=== PATIENT | male | born 1955 | race Caucasian/White ===

== ENCOUNTER 2020-02-18 10:54 | Outpatient (REF) | payer OTHER, SELFPAY | END 2020-02-18 10:55 | disposition home or self-care (01) | LOC: HO.LNP 10:54 | PROVIDERS: Visit Provider Internal Medicine | DX: Z20.828 Contact with and (suspected) exposure to other viral communicable diseases (principal) | CPT/HCPCS: 87635 ==

== ENCOUNTER 2020-04-19 10:15 | Outpatient (REF) | payer OTHER, SELFPAY ==
[2020-04-19 14:02] LABS: Estimated Average Glucose 123 mg/dL; Hemoglobin A1C 150.9302 umol/L; Hemoglobin A1c % 5.9 %
[2020-04-19 14:29] LABS: Anion Gap 12 (12-20); Blood Urea Nitrogen 12 mg/dL (9-16); Calcium 8.6 mg/dL (8.4-10.2); Carbon Dioxide 28 mmol/L (22-29); Chloride 103 mmol/L (96-108); Estimated Glomerular Filt Rate > 60; Glucose Random 115 mg/dL (60-115); Potassium 4.3 mmol/l (3.3-5.1); Sodium 139 mmol/L (135-145)
== END 2020-04-19 10:16 | disposition home or self-care (01) ==
LOC: HO.10HDL 10:15
PROVIDERS: PCP Internal Medicine; Visit Provider Internal Medicine
DX: E78.00 Pure hypercholesterolemia, unspecified (principal); R73.03 Prediabetes
CPT/HCPCS: 80048; 83036

== ENCOUNTER 2020-10-18 09:54 | Outpatient (REF) | payer OTHER, SELFPAY ==
[2020-10-18 13:54] LABS: MANUAL DIFF FLAG NO
[2020-10-18 13:59] LABS: Glucose Urine UA NEG (NEG); Leukocyte Esterase Urine NEG (NEG); Nitrite Urine NEG (NEG); Specific Gravity - Urine >= 1.030 (1.005-1.025); Urine Blood NEG (NEG); Urine Ketones 40 MG/DL (NEG); Urine Protein NEG (NEG-TRACE)
[2020-10-18 14:11] LABS: Basophils Percent Auto 0.8 % (0-2); Eosinophils Absolute Auto 0.1 X10*3/uL (0.0-0.4); Eosinophils Percent Auto 1.7 % (0-4); Hematocrit 42.7 % (42-52); Hemoglobin 14.4 g/dl (14.0-18.0); Imm Gran Abs Auto 0.01 X10*3/uL (0.00-0.03); Imm Gran Pct Auto 0.3 % (0.0-0.4); Lymphocytes Absolute Auto 1.2 X10*3/uL (1.2-4.9); Lymphocytes Percent Auto 32.2 % (20-40); Mean Corpuscular HGB Conc 33.7 g/dl (31.0-36.0); Mean Corpuscular Hemoglobin 31.7 pg (27.0-33.0); Mean Corpuscular Volume 94.1 fL (80-98); Mean Platelet Volume 8.7 fL (9.4-12.4); Monocytes Absolute Auto 0.4 X10*3/uL (0.1-1.2); Monocytes Percent Auto 10.7 % (2-11); Neutrophils Percent Auto 54.3 % (45-73); Platelet Count 168 X10*3/uL (160-400); Red Blood Count 4.54 X10*6/uL (4.60-5.80); Red Cell Distribution Width 12.2 % (11.0-16.0); White Blood Count 3.6 X10*3/uL (4.8-10.8)
[2020-10-18 14:17] LABS: Appearance Urine CLEAR; Color Urine YELLOW
[2020-10-18 14:23] LABS: Estimated Average Glucose 120 mg/dL; Hemoglobin A1C 150.2964 umol/L; Hemoglobin A1c % 5.8 %
[2020-10-18 14:31] LABS: Alanine Aminotransferase 13 U/L (0-40); Albumin Level 4.3 g/dL (3.5-5.0); Alkaline Phosphatase 39 U/L (39-117); Anion Gap 13 (12-20); Aspartate Amino Transferase 19 U/L (5-37); Bilirubin Total 1.5 mg/dL (0.0-1.0); Blood Urea Nitrogen 13 mg/dL (9-16); Calcium 8.9 mg/dL (8.4-10.2); Carbon Dioxide 28 mmol/L (22-29); Chloride 103 mmol/L (96-108); Cholesterol 189 mg/dL; Estimated Glomerular Filt Rate > 60; Glucose Random 116 mg/dL (60-115); HDL Cholesterol 44 mg/dL; LDL Cholesterol Calculated 118 mg/dl; Potassium 4.2 mmol/L (3.3-5.1); Sodium 140 mmol/L (135-145); Total Protein 6.9 g/dL (6.5-8.0); Triglycerides 138 mg/dL
[2020-10-18 15:03] LABS: Creatinine Urine 300.99 mg/dL; Microalbum/Creatinine Ratio Ur 4.3 ug/mg cr
== END 2020-10-18 09:55 | disposition home or self-care (01) ==
LOC: HO.10HDL 09:54
PROVIDERS: Visit Provider Internal Medicine
DX: Z00.00 Encounter for general adult medical examination without abnormal findings (principal); Z12.5 Encounter for screening for malignant neoplasm of prostate; E78.00 Pure hypercholesterolemia, unspecified; R73.03 Prediabetes; N40.0 Benign prostatic hyperplasia without lower urinary tract symptoms
CPT/HCPCS: 36415; 80053; 80061; 81003; 82043; 83036; 84153; 85025

== ENCOUNTER 2021-11-28 08:23 | Outpatient (REF) | payer OTHER, SELFPAY ==
[2021-11-28 10:33] LABS: MANUAL DIFF FLAG NO
[2021-11-28 10:48] LABS: Basophils Percent Auto 0.5 % (0-2); Hematocrit 41.7 % (42.0-52.0); Hemoglobin 14.5 g/dl (14.0-18.0); Imm Gran Abs Auto 0.01 X10*3/uL (0.00-0.03); Imm Gran Pct Auto 0.3 % (0.0-0.4); Lymphocytes Absolute Auto 1.2 X10*3/uL (1.2-4.9); Lymphocytes Percent Auto 31.3 % (20-40); Mean Corpuscular HGB Conc 34.8 g/dl (31.0-36.0); Mean Corpuscular Hemoglobin 31.7 pg (27.0-33.0); Mean Corpuscular Volume 91.2 fL (80.0-98.0); Mean Platelet Volume 8.8 fL (9.4-12.4); Monocytes Absolute Auto 0.4 X10*3/uL (0.1-1.2); Monocytes Percent Auto 10.1 % (2-11); Neutrophils Absolute Auto 2.2 x10*3/uL (2.0-8.3); Neutrophils Percent Auto 56.8 % (45-73); Platelet Count 159 X10*3/uL (160-400); Red Blood Count 4.57 X10*6/uL (4.60-5.80); White Blood Count 3.9 X10*3/uL (4.8-10.8)
[2021-11-28 10:49] LABS: Appearance Urine TURBID; Color Urine YELLOW; Glucose Urine UA NEG (NEG); Leukocyte Esterase Urine NEG (NEG); Nitrite Urine NEG (NEG); PH 5.5 (5.0-8.0); Specific Gravity - Urine >= 1.030 (1.005-1.025); Urine Blood NEG (NEG); Urine Ketones NEG (NEG); Urine Protein NEG (NEG-TRACE)
[2021-11-28 11:00] LABS: Alanine Aminotransferase 15 U/L (0-40); Albumin Level 4.2 g/dL (3.5-5.0); Alkaline Phosphatase 36 U/L (39-117); Anion Gap 10 (12-20); Aspartate Amino Transferase 18 U/L (5-37); Bilirubin Total 1.6 mg/dL (0.0-1.0); Blood Urea Nitrogen 12 mg/dL (9-16); Calcium 8.8 mg/dL (8.4-10.2); Carbon Dioxide 28 mmol/L (22-29); Chloride 104 mmol/L (96-108); Cholesterol 179 mg/dL; Estimated Glomerular Filt Rate > 60; Glucose Fasting 135 mg/dL (60-99); HDL Cholesterol 41 mg/dL; LDL Cholesterol Calculated 103 mg/dl; Potassium 4.2 mmol/L (3.3-5.1); Sodium 138 mmol/L (135-145); Total Protein 6.9 g/dL (6.5-8.0); Triglycerides 179 mg/dL
[2021-11-28 11:21] LABS: Prostate Specific Antigen Scr 1.02 ng/mL (<0.05-4.0)
[2021-11-28 11:41] LABS: Creatinine Urine 260.07 mg/dL; Microalbum/Creatinine Ratio Ur 4.2 ug/mg cr
[2021-11-28 11:45] LABS: Estimated Average Glucose 123 mg/dL; Hemoglobin A1c % 5.9 %
== END 2021-11-28 08:24 | disposition home or self-care (01) ==
LOC: HO.10HDL 08:23
PROVIDERS: Visit Provider Internal Medicine
DX: Z00.00 Encounter for general adult medical examination without abnormal findings (principal); Z12.5 Encounter for screening for malignant neoplasm of prostate; R73.03 Prediabetes
CPT/HCPCS: 36415; 80053; 80061; 81003; 82043; 83036; 84153; 85025

== ENCOUNTER 2022-08-09 09:33 | Outpatient (REF) | payer MEDICARE, OTHER, SELFPAY ==
[2022-08-09 10:58] LABS: Estimated Average Glucose 126 mg/dL
[2022-08-09 10:58] LABS: Anion Gap 8 (12-20); Blood Urea Nitrogen 11 mg/dL (9-16); Calcium 8.8 mg/dL (8.4-10.2); Carbon Dioxide 30 mmol/L (22-29); Chloride 106 mmol/L (96-108); Estimated Glomerular Filt Rate > 60; Glucose Random 127 mg/dL (60-115); Potassium 4.4 mmol/L (3.3-5.1); Sodium 140 mmol/L (135-145)
== END 2022-08-09 09:34 | disposition home or self-care (01) ==
LOC: HO.10HDL 09:33
PROVIDERS: Visit Provider Internal Medicine
DX: R73.03 Prediabetes (principal)
CPT/HCPCS: 36415; 80048; 83036

== ENCOUNTER 2023-02-14 09:38 | Outpatient (REF) | payer MEDICARE, OTHER, SELFPAY ==
[2023-02-14 10:42] LABS: MANUAL DIFF FLAG NO
[2023-02-14 10:54] LABS: Basophils Percent Auto 0.5 % (0-2); Eosinophils Percent Auto 0.8 % (0-4); Hematocrit 42.9 % (42.0-52.0); Hemoglobin 14.7 g/dl (14.0-18.0); Imm Gran Abs Auto 0.01 X10*3/uL (0.00-0.03); Imm Gran Pct Auto 0.3 % (0.0-0.4); Lymphocytes Absolute Auto 1.1 X10*3/uL (1.2-4.9); Lymphocytes Percent Auto 30.1 % (20-40); Mean Corpuscular HGB Conc 34.3 g/dl (31.0-36.0); Mean Corpuscular Hemoglobin 31.8 pg (27.0-33.0); Mean Corpuscular Volume 92.9 fL (80.0-98.0); Mean Platelet Volume 8.4 fL (9.4-12.4); Monocytes Absolute Auto 0.4 X10*3/uL (0.1-1.2); Monocytes Percent Auto 10.8 % (2-11); Neutrophils Absolute Auto 2.1 x10*3/uL (2.0-8.3); Neutrophils Percent Auto 57.5 % (45-73); Platelet Count 162 X10*3/uL (160-400); Red Blood Count 4.62 X10*6/uL (4.60-5.80); Red Cell Distribution Width 12.1 % (11.0-16.0); White Blood Count 3.7 X10*3/uL (4.8-10.8)
[2023-02-14 11:14] LABS: Alanine Aminotransferase 15 U/L (0-40); Albumin Level 4.2 g/dL (3.5-5.0); Alkaline Phosphatase 42 U/L (39-117); Anion Gap 14 (12-20); Aspartate Amino Transferase 19 U/L (5-37); Bilirubin Total 1.8 mg/dL (0.0-1.0); Blood Urea Nitrogen 15 mg/dL (9-16); Calcium 9.8 mg/dL (8.4-10.2); Carbon Dioxide 26 mmol/L (22-29); Chloride 101 mmol/L (96-108); Cholesterol 177 mg/dL (<200); Estimated Glomerular Filt Rate > 60; Glucose Fasting 123 mg/dL (60-99); HDL Cholesterol 49 mg/dL (>40); LDL Cholesterol Calculated 112 mg/dL (<100); Potassium 4.5 mmol/L (3.3-5.1); Sodium 136 mmol/L (135-145); Total Protein 7.1 g/dL (6.5-8.0); Triglycerides 80 mg/dL (<150)
[2023-02-14 11:29] LABS: Prostate Specific Antigen Scr 1.26 ng/mL (<0.05-4.0)
[2023-02-14 12:02] LABS: Estimated Average Glucose 120 mg/dL; Hemoglobin A1c % 5.8 % (<6.0)
[2023-02-14 12:22] LABS: Microalbum/Creatinine Ratio Ur 3.5 ug/mg cr (<30)
== END 2023-02-14 09:39 | disposition home or self-care (01) ==
LOC: HO.10HDL 09:38
PROVIDERS: Visit Provider Internal Medicine
DX: E78.00 Pure hypercholesterolemia, unspecified (principal); N40.0 Benign prostatic hyperplasia without lower urinary tract symptoms; R73.03 Prediabetes; Z12.5 Encounter for screening for malignant neoplasm of prostate
CPT/HCPCS: 36415; 80053; 80061; 82043; 82570; 83036; 84153; 85025

== ENCOUNTER 2023-07-08 09:24 | Outpatient (REF) | payer MEDICARE, OTHER, SELFPAY ==
[2023-07-08 11:17] LABS: MANUAL DIFF FLAG NO
[2023-07-08 11:23] LABS: Basophils Percent Auto 0.8 % (0-2); Eosinophils Absolute Auto 0.1 X10*3/uL (0.0-0.4); Eosinophils Percent Auto 2.4 % (0-4); Hematocrit 39.7 % (42.0-52.0); Hemoglobin 13.5 g/dl (14.0-18.0); Imm Gran Abs Auto 0.01 X10*3/uL (0.00-0.03); Imm Gran Pct Auto 0.3 % (0.0-0.4); Lymphocytes Absolute Auto 1.1 X10*3/uL (1.2-4.9); Lymphocytes Percent Auto 29.4 % (20-40); Mean Corpuscular Hemoglobin 32.1 pg (27.0-33.0); Mean Corpuscular Volume 94.3 fL (80.0-98.0); Monocytes Absolute Auto 0.4 X10*3/uL (0.1-1.2); Monocytes Percent Auto 10.8 % (2-11); Neutrophils Absolute Auto 2.2 x10*3/uL (2.0-8.3); Neutrophils Percent Auto 56.3 % (45-73); Platelet Count 145 X10*3/uL (160-400); Red Blood Count 4.21 X10*6/uL (4.60-5.80); Red Cell Distribution Width 12.8 % (11.0-16.0); White Blood Count 3.8 X10*3/uL (4.8-10.8)
[2023-07-08 11:29] LABS: Estimated Average Glucose 123 mg/dL; Hemoglobin A1c % 5.9 % (<6.0)
[2023-07-08 12:25] LABS: Anion Gap 11 (12-20); Blood Urea Nitrogen 12 mg/dL (9-16); Calcium 8.8 mg/dL (8.4-10.2); Carbon Dioxide 29 mmol/L (22-29); Chloride 104 mmol/L (96-108); Estimated Glomerular Filt Rate > 60; Glucose Random 136 mg/dL (60-115); Potassium 4.1 mmol/L (3.3-5.1); Sodium 140 mmol/L (135-145)
== END 2023-07-08 09:25 | disposition home or self-care (01) ==
LOC: HO.HMGCLDS 09:24
PROVIDERS: PCP Internal Medicine; Visit Provider Internal Medicine
DX: R73.03 Prediabetes (principal); I42.9 Cardiomyopathy, unspecified
CPT/HCPCS: 36415; 80048; 83036; 85025

== ENCOUNTER 2025-02-09 16:09 | Inpatient (IN) | payer MEDICARE, OTHER, SELFPAY ==
--- NOTE | ~2025-02-09 | MR_ITS ---
EXAMINATION: MR BRAIN WITHOUT CONTRAST CLINICAL INFORMATION: Right retinal artery occlusion, rule out other infarcts. COMPARISON: No prior MRI. CT and CTA head and neck dated prior day. TECHNIQUE: MRI of the brain was obtained using routine sequences without contrast. Examination performed on a 1.5 Marlene Siemens high-field unit. FINDINGS: There is no diffusion restriction. There is no intracranial hemorrhage, acute infarction, mass effect, or edema. Ventricles, sulci, and cisterns are normal in size and configuration for patient age. No shift of midline. No abnormal hemosiderin deposition is identified. There are a few scattered punctate foci of white matter T2 hyperintensity in the periventricular, subcortical, and hemispheric deep white matter. These foci are nonspecific but statistically most likely relate to minimal small vessel ischemic changes. Midline structures appear normally formed. The pituitary gland appears normal. Posterior fossa structures appear normal. Cerebellar tonsils are appropriately located. Major flow voids are preserved within the skull base. The globes and orbital contents demonstrate no abnormalities. Paranasal sinuses are clear bilaterally. Nasal septum is essentially midline without spur. The mastoids and tympanic cavities are normally aerated. Extracranial soft tissues demonstrate no abnormalities. No suspicious bone marrow changes are evident. Atlantoaxial joint is normal. MR/MR head/brain wo con IMPRESSION: 1. No evidence of intracranial hemorrhage, acute infarction, mass effect, or edema. 2. Minimal changes of small vessel ischemia. Electronically signed by: Ziyad Branch MD 02/10/2025 10:45 AM EDT
--- NOTE | ~2025-02-09 | CT_ITS ---
CLINICAL HISTORY: retinal artery occlusion? decrease vision Right ey CT angiography head and neck with contrast. 3D Postprocessing. CT head without contrast. Comparison: None provided Findings: BRAIN: No acute infarct, hemorrhage, or mass effect. Scattered periventricular/deep white matter hypodensities, nonspecific, however may represent chronic microvascular ischemic disease. CSF SPACES: No hydrocephalus or effacement of basal cisterns. SKULL: No calvarial fracture. SINUSES: No significant mucosal thickening or effusion on limited views. OTHER: Negative. ANT CIRCULATION: No large vessel occlusion, AVM or aneurysm. POST CIRCULATION: No large vessel occlusion, AVM or aneurysm. ORBITS: There appears to be asymmetric diminished flow of the right ophthalmic artery (series 10, image 320). AORTIC ARCH: Normal aortic arch. No high-grade stenosis. R COMMON CAROTID: No hemodynamically significant stenosis or dissection. R INTERNAL CAROTID: No hemodynamically significant stenosis or dissection. Moderate atherosclerotic calcifications at the bifurcation. R EXTERNAL CAROTID: No hemodynamically significant stenosis or dissection. R VERTEBRAL: No high-grade stenosis or dissection. Right dominant vertebral artery. L COMMON CAROTID: No hemodynamically significant stenosis or dissection. L INTERNAL CAROTID: No hemodynamically significant stenosis or dissection. Moderate atherosclerotic calcifications at the bifurcation. L EXTERNAL CAROTID: No hemodynamically significant stenosis or dissection. L VERTEBRAL: No high-grade stenosis or dissection. LUNG APEX: Limited views of the lung apices are clear. SOFT TISSUES: The salivary and thyroid glands are within normal limits. No paraspinous soft tissue abnormality. LIMITED SPINE: No evidence of fracture on limited views. IMPRESSION: CT head demonstrates no acute intracranial abnormality. Asymmetric diminished flow of the right ophthalmic artery, unclear if this is due to occlusion versus contrast timing. Patent head and neck CTA otherwise. This document has been electronically signed by: Marilu Valle MD on 02/09/2025 20:55:10
[2025-02-09 16:22] VITALS: BP 140/77; PULSE 85; RESP 18; TEMP 37; O2SAT 98; BMI 23.1
--- NOTE | 2025-02-09 16:29 | ED.GENADULT ---
HPI - General Adult General Chief complaint: Eye Problems Stated complaint: Rt eye blood clot? Sent by eye surgeon Time Seen by Provider: 02/09/25 18:50 Source: patient, RN notes reviewed and old records reviewed Mode of arrival: ambulatory Limitations: no limitations History of Present Illness ED Provider: Stone HPI narrative: 69-year-old male past medical history significant for type 2 diabetes, hypertension, hyperlipidemia presents for evaluation of right eye visual changes. The patient reports on January 24, 2-1/2 weeks ago he had some blurry vision after he stepped that side of the nondenominational. He felt as though this was related to starting at the son. He reports that his in his right in the right side only, he did not have a complete vision loss but reported ?a beige cloudiness and blurriness. He went back inside and after 3 or 4 hours his symptoms completely resolved. He woke up the next morning feeling better with no visual disturbances. The patient went to [place] for a vacation and return on Saturday. He reports his symptoms have happened twice since then most recently yesterday. His symptoms have only been in the right eye. He has since followed up with his own turret lathe set up operator who felt the patient may have cataracts and he was referred to a cataract surgeon today. The cataract surgeon felt as though the patient had a retinal artery occlusion in his superior branch and walking him to be evaluated in the ER. The patient denies any history of stroke but takes a baby aspirin daily due to coronary artery disease He never had any headache, eye pain, slurred speech, Keppra weakness or memory issues The patient's right eye was dilated at the cataract specialist this afternoon Related Data Home Medications ?Medication ?Instructions ?Recorded ?Confirmed ascorbic acid (vitamin C) 500 mg 500 mg PO DAILY 02/09/25 02/09/25 tablet (Vitamin C) aspirin 81 mg tablet,delayed 81 mg PO DAILY 02/09/25 02/09/25 release atorvastatin 80 mg tablet 80 mg PO BEDTIME 02/09/25 02/09/25 carvedilol 6.25 mg tablet 6.25 mg PO BID 02/09/25 02/09/25 cholecalciferol (vitamin D3) 125 125 mcg PO DAILY 02/09/25 02/09/25 mcg (5,000 unit) tablet (Vitamin D3) dapagliflozin propanediol 10 mg 10 mg PO DAILY 02/09/25 02/09/25 tablet (Farxiga) ferrous sulfate 324 mg (65 mg 324 mg PO DAILY 02/09/25 02/09/25 iron) tablet,delayed release multivitamin 1 tab PO DAILY 02/09/25 02/09/25 sacubitril 24 mg-valsartan 26 mg 1 tab PO BID 02/09/25 02/09/25 tablet Previous Rx's ?Medication ?Instructions ?Recorded clopidogrel 75 mg tablet 75 mg PO DAILY 90 days #90 tabs 02/10/25 Allergies Allergy/AdvReac Type Severity Reaction Status Date / Time No Known Allergies Allergy Verified 02/09/25 16:23 Review of Systems Constitutional: Constitutional: Denies body ache(s), Denies chills, Denies fever(s) and Denies headache(s) Eyes: Eyes: Reports blurry vision, Reports change in vision, Denies decreased night vision, Denies diplopia, Reports other visual disturbances, Denies eye pain, Denies seeing flashes, Reports spots in vision and Denies tunnel vision ENT: Denies headache(s) Cardiovascular: Cardiovascular: Denies chest pain and Denies dyspnea on exertion Respiratory: Respiratory: Denies cough and Denies dyspnea on exertion Gastrointestinal: Gastrointestinal: Denies abdominal pain, Denies nausea and Denies vomiting Musculoskeletal: Musculoskeletal: Denies back pain Integumentary/Breasts: Skin/Breast: Denies rash Neurologic: Denies headache(s) Psychiatric: Psychiatric: Denies anxiety PMFSH Past Medical History Medical History (Updated 02/10/25 @ 16:46 by Juan Ross MD) CAD (coronary artery disease) Heart failure with recovered ejection fraction (HFrecEF) Physical Exam ED Vital Signs: Vital Signs - 24 hr 02/09/25 16:22 02/09/25 19:51 Temperature 98.6 F 98.4 F Pulse Rate 85 64 Respiratory Rate 18 16 Blood Pressure 140/77 H 137/68 Pulse Oximetry 98 99 Oxygen Delivery Method Room Air Room Air BMI result Body Mass Index 23.1 Const General: healthy appearing, comfortable, no acute distress, alert and awake Nutritional Appearance: well nourished Orientation/consciousness: patient oriented x3 HENMT Head: Yes normocephalic and Yes atraumatic Eyes Visual Sanders: normal visual sanders by confrontation Eyelids: Yes eyelids normal Conjunctivae: conjunctivae normal Sclerae: sclerae normal Corneas: corneas normal Pupils: Dilated pupils on the right EOM: EOMs intact bilaterally Direct Ophthalmoscopy: normal light reflex, no photophobia, no papilledema, fundi normal bilaterally and anterior chamber normal Neck Neck: Yes full ROM Resp Effort & Inspection: normal respiratory effort, able to speak in complete sentences and not labored Cardio Rate: regular rate Rhythm: regular rhythm GI Inspection: No distended Palpation (GI): Soft to palpation, not firm, nontender, no guarding and not rigid Skin General skin exam: elasticity normal Neuro General: patient oriented x3 Cranial nerves: Yes CN's II-XII intact bilaterally and Yes Bilaterally intact EOM present Cognition (Neuro): normal cognition Extrem Other: Moving all extremities well without any obvious deformities Course Course Course Narrative: RME: 69-year-old male sent from I surgeon clinic for rule out retinal artery occlusion. Patient is since January 24 has been having sensation of a film over his right eye which caused blurry vision. Today the eye surgeon evaluated I NSAIDs most likely has a retinal artery occlusion. Patient was sent for imaging in the ED. Patient does not have any neuro deficits. NIH score is 0 Reevaluation(s) Reevaluation #1: The patient's CT angiography shows asymmetric flow to the right ophthalmic artery. I discussed this with our turret lathe set up operator, Dr. Agudelo. He recommends an echocardiogram, aspirin plus Plavix and the patient is already on aspirin started ordered Plavix. The patient did report an additional episode of blurry vision while in the emergency department that has since resolved. This lasted about 40 minutes. Ophthalmology also recommends close monitoring with the patient's blood pressure which is currently 137/68. I performed visual acuity myself and the patient was 20/50 on the right, affected eye and 20/40 on the left. Time: 21:41 Medications Administered Discontinued Medications Generic Name Dose Route Start Last Admin Trade Name Freq PRN Reason Stop Dose Admin Aspirin 81 mg 02/10/25 09:00 02/10/25 10:37 Aspirin Enteric Coated 81 Mg Tablet. PO 81 mg DAILY EUNICE Administration Atorvastatin Calcium 80 mg 02/10/25 09:00 02/10/25 10:38 Atorvastatin Calcium 80 Mg Tablet PO 80 mg DAILY EUNICE Administration Carvedilol 6.25 mg 02/10/25 09:00 02/10/25 11:12 Carvedilol 6.25 Mg Tablet PO 6.25 mg BID EUNICE Administration Protocol Clopidogrel Bisulfate 75 mg 02/09/25 21:37 02/09/25 21:44 Clopidogrel Bisulfate 75 Mg Tablet PO 02/09/25 21:38 75 mg ONCE ONE Administration Clopidogrel Bisulfate 75 mg 02/10/25 09:00 02/10/25 10:37 Clopidogrel Bisulfate 75 Mg Tablet PO 75 mg DAILY EUNICE Administration Heparin Sodium (Porcine) 5,000 unit 02/09/25 22:00 02/10/25 06:26 Heparin Sodium,Porcine 5,000 Unit/Ml Vial SUBCUT 5,000 unit Q8H EUNICE Administration Lactated Ringer's 1,000 mls @ 100 mls/hr 02/10/25 03:15 02/10/25 11:16 Lr IVCONT 100 mls/hr .Q10H EUNICE Infusion Sacubitril/Valsartan 1 tab 02/10/25 09:00 02/10/25 11:11 Sacubitril/Valsartan 1 Tab Tablet PO 1 tab BID EUNICE Administration Protocol Sodium Chloride 3 ml 02/10/25 00:00 02/10/25 08:10 0.9 % Sodium Chloride Flush 3 Ml Syringe IVFLUSH Not Given QSHIFT EUNICE Vitamin D 125 mcg 02/10/25 09:00 02/10/25 10:37 Cholecalciferol (Vitamin D3) 25 Mcg Tablet PO 125 mcg DAILY EUNICE Administration Medical Decision Making Medical Decision Making [facility] Narrative: 69-year-old male past medical history as above presents for evaluation of right eye visual changes he has asymptomatic at the time my evaluation, NIH stroke score of 0. He has been evaluated by his turret lathe set up operator as well as a cataract specialist who feels that he has a superior retinal artery occlusion. Plan for CT angiography of the head and neck. The patient's symptoms started 2-1/2 weeks ago, he is well outside the window for TNK and also has a stroke score of 0. Therefore TNK was considered but not administered. Differential Diagnosis Differential Diagnoses: The differential diagnosis associated with the presentation includes Retinal detachment Cataract Retinal artery occlusion TIA CVA Lab Data MDM Lab Attestation statement: I reviewed the patient's lab results. The patient has a mild pancytopenia that is consistent with his baseline. Platelet count has 645008. No significant chemistry abnormalities warranting intervention. 02/10/25 03:43 02/10/25 03:43 Labs: Lab Results 02/09/25 Range/Units 16:38 WBC 4.5 L (4.8-10.8) X10*3/uL RBC 4.38 L (4.60-5.80) X10*6/uL Hgb 14.4 (14.0-18.0) g/dl Hct 40.8 L (42.0-52.0) % MCV 93.2 (80.0-98.0) fL MCH 32.9 (27.0-33.0) pg MCHC 35.3 (31.0-36.0) g/dl RDW 12.2 (11.0-16.0) % Plt Count 151 L (160-400) X10*3/uL MPV 8.1 L (9.4-12.4) fL Immature Gran % (Auto) 0.2 (0.0-0.4) % Neut % (Auto) 54.0 (45-73) % Lymph % (Auto) 31.0 (20-40) % [place] % (Auto) 12.6 H (2-11) % Eos % (Auto) 1.5 (0-4) % Baso % (Auto) 0.7 (0-2) % Lymph # (Auto) 1.4 (1.2-4.9) X10*3/uL [place] # (Auto) 0.6 (0.1-1.2) X10*3/uL Eos # (Auto) 0.1 (0.0-0.4) X10*3/uL Baso # (Auto) 0.0 (0.0-0.2) X10*3/uL Abs Immat Gran (auto) 0.01 (0.00-0.03) X10*3/uL Absolute Neuts (auto) 2.4 (2.0-8.3) x10*3/uL Absolute Nucleated RBC 0.000 (0.0-0.012) X10*3/uL Nucleated RBC % (auto) 0.0 (0.0-0.2) /100WBC Sodium 141 (135-145) mmol/L Potassium 3.9 (3.3-5.1) mmol/L Chloride 107 (96-108) mmol/L Carbon Dioxide 30 H (22-29) mmol/L Anion Gap 8 L (12-20) BUN 13 (9-16) mg/dL Creatinine 0.88 (0.5-1.4) mg/dL Estim Creat Clear Calc 76.1 Estimated GFR > 60 Random Glucose 102 (60-115) mg/dL Calcium 8.6 (8.4-10.2) mg/dL Total Bilirubin 1.5 H (0.0-1.0) mg/dL AST 30 (5-37) U/L ALT 27 (0-40) U/L Alkaline Phosphatase 51 (39-117) U/L Total Protein 6.5 (6.5-8.0) g/dL Albumin 4.1 (3.5-5.0) g/dL Discharge Plan Discharge Clinical Impression: Branch retinal artery occlusion Qualifiers: Laterality: right Qualified Code(s): H34.231 - Retinal artery branch occlusion, right eye Patient Disposition: Home, Self-Care Interventions: ED Discharge Assessment Last Done: 02/10/25 16:55 Discharge Date/Time: 02/10/25 16:56
[2025-02-09 16:43] LABS: MANUAL DIFF FLAG NO
[2025-02-09 16:46] LABS: Hematocrit 40.8 % (42.0-52.0); Hemoglobin 14.4 g/dl (14.0-18.0); Imm Gran Abs Auto 0.01 X10*3/uL (0.00-0.03); Imm Gran Pct Auto 0.2 % (0.0-0.4); Lymphocytes Absolute Auto 1.4 X10*3/uL (1.2-4.9); Mean Corpuscular HGB Conc 35.3 g/dl (31.0-36.0); Mean Corpuscular Hemoglobin 32.9 pg (27.0-33.0); Mean Corpuscular Volume 93.2 fL (80.0-98.0); NRBC Abs Auto 0.000 X10*3/uL (0.0-0.012); NRBC Pct Auto 0.0 /100WBC (0.0-0.2); Platelet Count 151 X10*3/uL (160-400); Red Blood Count 4.38 X10*6/uL (4.60-5.80); White Blood Count 4.5 X10*3/uL (4.8-10.8)
[2025-02-09 17:00] LABS: Alanine Aminotransferase 27 U/L (0-40); Albumin Level 4.1 g/dL (3.5-5.0); Alkaline Phosphatase 51 U/L (39-117); Anion Gap 8 (12-20); Aspartate Amino Transferase 30 U/L (5-37); Blood Urea Nitrogen 13 mg/dL (9-16); Calcium 8.6 mg/dL (8.4-10.2); Carbon Dioxide 30 mmol/L (22-29); Chloride 107 mmol/L (96-108); Creatinine Clr Calc Pharmacy 76.1; Estimated Glomerular Filt Rate > 60; Potassium 3.9 mmol/L (3.3-5.1); Sodium 141 mmol/L (135-145); Total Protein 6.5 g/dL (6.5-8.0)
--- OUTSIDE RECORDS SUMMARY | 2025-02-09 19:42 | XMS_ITS | Patient Health Record ---
Author Organization [facility] Address [address] [place] [address] Care Team Providers Care Planer Offbearer Name Role Phone Ike (RETIRED) Kennedy GUAJARDO Primary Care Provide r Unavailable Mich Pinzon Jr Unavailable [phone] Reason For Referral No Information Medications Medication SIG (Take, Route, Frequency, Duration) Notes Start Date End Date Status Vitamin C 500 MG as directed Orally Active Multivitamin Adult - as directed Orally w/iron once a day Active Simvastatin 20 MG 1 tablet in the even ing Orally Once a day for 30 day(s) Active Colyte with Flavor Packs 240 GM As directed Orally Over the specified time. for 1 day(s) 08/27/2018 Active Vitamin D 1000 UNIT 1 tablet Orally Once a day for 30 day(s) Active Immunizations Vaccine Route Administration Date Status Comme nts Influenza Unknown 01/04/2018 Administered Social History Tobacco Use: Social History Observation Description Date Details (start date - stop date) Never Smoker NA - NA Tobacco Use/Smoking Question Answer Notes Patient is a nonsmoker Alcohol Screen Question Answer Notes Did you have a drink contain ing alcohol in the past year? Yes How often did you have a dri nk containing alcohol in the past year? Never (0 point) How many drinks did you have on a typical day when you were drinking in the past year? 1 or 2 drinks (0 point) How often did you have 6 or more drinks on one occasion in the past year? Never (0 point) Points 0 Interpretation Negative Problems Problem Type SNOMED Code ICD Code Onset Dates Problem Status W/U Status Risk Notes Problem 475821389 Colon cancer screening (Z12.11) Active confirmed Problem 285761618 Encounter for other preprocedural examination (Z01.818) Active confirmed Plan Of Treatment Future Test Test Name Order Date COLONOSCOPY 08/27/2018 Insurance Providers Payer Name Payer Address Payer Phone Subscriber Number Group Number Insured Name Patient Relationship to Insured Coverage Start Date Coverage End Date [facility] [employer] [address] [place] [address] [id number] [id number] CONDE Self - patient is the insured Medical (General) History Medical History History ICD Code Denies [place],DM,CVA,Lung disease,renal dise ase hypercholesterolemia Surgical History Surgery Date(Month/Year) tonsillectomy
[2025-02-09 19:51] VITALS: BP 137/68; PULSE 64; RESP 16; TEMP 36.9; O2SAT 99
--- NOTE | 2025-02-09 21:14 | ECG_ITS ---
Test Reason : CVA VS TIA Blood Pressure : */* mmHG Vent. Rate : 73 BPM Atrial Rate : 73 BPM P-R Int : 168 ms QRS Dur : 84 ms QT Int : 410 ms P-R-T Axes : 76 60 69 degrees QTcB Int : 451 ms Sinus rhythm with occasional Premature ventricular complexes Otherwise normal ECG No previous ECGs available Referred By: Ignacio Ritter Electronically Signed By: ADDIE SNOW MD
--- NOTE | 2025-02-09 21:53 | P.HPHOSP_ITS ---
History of Present Illness Date of Service: 02/09/25 Chief Complaint: Blurry vision 69-year-old male with a past medical history of HTN, HLD, dm, CAD presented to the hospital today with a chief complaint of blurry vision. Patient mentioned that he has been having episodes of blurry visions since January 24. Episodes have been intermittent. The symptoms when they initially happened lasted for few hours and resolved. Did not have any episode for about a week. Follow up he followed up with his primary general production worker who initially planned for evaluation for cataract but later told him that it is concerning for retinal artery stenosis and asked him to go to the ER to rule out stroke. Today he had 4 hour episode of blurry vision which resolved by the time he came to the ER and had another 45 minute episode of blurry vision. Currently his vision is improved. Denies any numbness tingling or focal weakness. Denies any headaches. Denies any fever chills cough or sputum production. Denies any GI symptoms. Review of all other systems is negative except mentioned above ER course: Per ER team, patient initially had blurry vision in his right eye which currently resolved. The his vision was 20/50 in the right eye and 20/40 in the left eye. CT head showed no acute intracranial process. CT angio showed diminished symmetric flow of the right ophthalmic artery. ER physician discussed with Dr. Agudelo-general production worker who suggested echocardiogram, aspirin Plavix. Did not suggest heparin drip. PMFSH Social History Smoked in Last 30 Days: No Advance Directives: No Advance Directives Information Provided: Yes Meds Allergies Allergy/AdvReac Type Severity Reaction Status Date / Time No Known Allergies Allergy Verified 02/09/25 16:23 Physical Exam 2 Vital Signs and Narrative: Vital Signs: Last Vital Signs Temp 98.4 F 02/09/25 19:51 Pulse 64 02/09/25 19:51 Resp 16 02/09/25 19:51 BP 137/68 02/09/25 19:51 Pulse Ox 99 02/09/25 19:51 O2 Del Method Room Air 02/09/25 19:51 BMI result Body Mass Index 23.1 Gen: Appears be in no acute distress HEENT: NCAT, Moist mucosa. Pulmonary: Vesicular breath sounds, fair air entry CVS: Normal S1-S2 Abdomen: BS+, Soft, Nontender Extremities: Warm well perfused Neuro: Alert and awake. Results Labs 02/09/25 16:38 02/09/25 16:38 Labs: Laboratory Results - last 24 hr 02/09/25 16:38 MCV 93.2 MCH 32.9 MCHC 35.3 RDW 12.2 Plt Count 151 L MPV 8.1 L Immature Gran % (Auto) 0.2 Neut % (Auto) 54.0 Lymph % (Auto) 31.0 [place] % (Auto) 12.6 H Eos % (Auto) 1.5 Baso % (Auto) 0.7 Lymph # (Auto) 1.4 [place] # (Auto) 0.6 Eos # (Auto) 0.1 Baso # (Auto) 0.0 Abs Immat Gran (auto) 0.01 Absolute Neuts (auto) 2.4 Absolute Nucleated RBC 0.000 Nucleated RBC % (auto) 0.0 Anion Gap 8 L Estim Creat Clear Calc 76.1 Estimated GFR > 60 Random Glucose 102 Calcium 8.6 Total Bilirubin 1.5 H AST 30 ALT 27 Alkaline Phosphatase 51 Total Protein 6.5 Albumin 4.1 Assessment and Plan (1) Branch retinal artery occlusion: Qualifiers: Laterality: right Qualified Code(s): H34.231 - Retinal artery branch occlusion, right eye Status: Acute Plan 69-year-old male with a past medical history of HTN, HLD, dm, CAD presented to the hospital today with a chief complaint of blurry vision. Noted to have findings concerning for retinal artery occlusion. Blurry vision: Diminished retinal artery blood flow on the right side. Patient having intermittent episodes of blurry visions. Currently improved. CT head showed no acute intracranial process. Ophthalmology Dr. Agudelo suggested to keep the patient on aspirin, Plavix- ordered. Did not suggest heparin drip. Also recommended monthly ophthalmology clinic followups. Echocardiogram MRI brain Neuro checks PT/OT/REPORT SPECIALIST eval CAD: Continue home aspirin, statin. Hypertension: Resume home antihypertensives pending med rec by pharmacy. DVT prophylaxis: SubQ heparin Code status: Full code Quality Stroke Does the patient have a stroke diagnosis?: No VTE Prior VTE?: No VTE Risk Level:: Medical - moderate - high VTE Device Contraindication: Treatment Not Indicated VTE Drug Contraindication: N/A - Med Ordered
--- NOTE | 2025-02-09 22:12 | PHA.MEDREC ---
Addendum entered by Jasper Gama RPh 02/09/25 22:17: Med rec reviewed Original Note: Pharmacy Consult ? Medication Reconciliation Pharmacy has completed the medication reconciliation. Patient had a list of medications with him. Utilized claims and list from patient to confirm med list. Patient is no longer taking Clopidogrel 75 mg( was stopped 05/05/24. Patient had all his medications today.
[2025-02-09 22:28] VITALS: BP 145/76; PULSE 74; RESP 12; O2SAT 100
[2025-02-10] VITALS (8 sets, daily range): BP systolic 97–138; BP diastolic 55–81; PULSE 71–86; RESP 12–18; TEMP 36.3–36.4; O2SAT 97–99
--- NOTE | 2025-02-10 00:44 | HO.NURTONUR ---
Addendum entered by Azucena Hamm RN 02/10/25 09:43: Care of Pt assumed at change of shift (0700.) Pt is A&Ox3. Independent and safe ambulation. NAD noted and Pt offers no complaints at this time. Bedside echo completed and Pt to MRI for imaging. Awaiting inpatient bed assignment. Original Note: Pt from home with c/o right eye visual changes. Pt states he noticed symptoms about 2 weeks ago but within a couple of hours the symptoms had resolved. Since the pt states he has had 2 similar episodes with the most recent being yesterday. He had a follow up appointment with an efficiency clerk who referred him to a cataract surgeon. During the follow up with the surgeon, pt was advised to go to the ER for further evaluation as the surgeon felt pt had a retinal artery occlusion. pt vision acuity test in the ED showed 20/50 in the right eye and 20/40 in the left eye. Pt being admitted for echocardiogram, MRI and observation. Pt is caox4, able to make his needs known, and ambulated with steady gait. Pt has 20G IV in RAC and has been medicated per mar. EKG: sinus rhythm with occasional PVCs CTA head/neck: IMPRESSION: CT head demonstrates no acute intracranial abnormality. Asymmetric diminished flow of the right ophthalmic artery, unclear if this is due to occlusion versus contrast timing. Patent head and neck CTA otherwise.
[2025-02-10] MEDS: Lactated Ringers 1,000 ML 100 ML IVCONT (03:30)
[2025-02-10 04:48] LABS: MANUAL DIFF FLAG NO
[2025-02-10 04:52] LABS: Hematocrit 40.9 % (42.0-52.0); Hemoglobin 14.2 g/dl (14.0-18.0); Imm Gran Abs Auto 0.01 X10*3/uL (0.00-0.03); Imm Gran Pct Auto 0.2 % (0.0-0.4); Lymphocytes Absolute Auto 1.8 X10*3/uL (1.2-4.9); Mean Corpuscular HGB Conc 34.7 g/dl (31.0-36.0); Mean Corpuscular Hemoglobin 32.4 pg (27.0-33.0); Mean Corpuscular Volume 93.4 fL (80.0-98.0); NRBC Abs Auto 0.000 X10*3/uL (0.0-0.012); NRBC Pct Auto 0.0 /100WBC (0.0-0.2); Platelet Count 119 X10*3/uL (160-400); Red Blood Count 4.38 X10*6/uL (4.60-5.80); White Blood Count 4.6 X10*3/uL (4.8-10.8)
[2025-02-10 05:16] LABS: Alanine Aminotransferase 19 U/L (0-40); Albumin Level 3.7 g/dL (3.5-5.0); Alkaline Phosphatase 33 U/L (39-117); Anion Gap 15 (12-20); Aspartate Amino Transferase 26 U/L (5-37); Blood Urea Nitrogen 12 mg/dL (9-16); Calcium 8.3 mg/dL (8.4-10.2); Carbon Dioxide 25 mmol/L (22-29); Chloride 107 mmol/L (96-108); Cholesterol 115 mg/dL (<200); Creatinine Clr Calc Pharmacy 95.7; Estimated Glomerular Filt Rate > 60; HDL Cholesterol 43 mg/dL (>40); Potassium 3.6 mmol/L (3.3-5.1); Sodium 143 mmol/L (135-145); Total Protein 5.9 g/dL (6.5-8.0); Triglycerides 69 mg/dL (<150)
[2025-02-10 05:35] LABS: Thyroid Stimulating Hormone 3.74 uIU/mL (0.32-4.0)
--- NOTE | 2025-02-10 07:00 | CA_ITS ---
Transthoracic Echocardiogram Patient (Last, First, Middle): Jarrett Akhtar, Gender: Male Date of : 1955 Age: 69 Procedure Date: 02/10/2025 Procedure Type: Transthoracic Echocardiogram Location: ER Height: 170.18 cm Weight: 66.68 kg BSA: 1.77 m2 Heart Rate: 76 bpm BP: 109 / 55 mmHg Law Office Assistant: TO/RC Referring MD: Kirby Sheffield MD Manager [employer]: Toni Turner MD Symptoms: blurry vision; retinal artery occlusion Study Quality: Adequate w contrast ECG Rhythm: Sinus with extra beats Conclusions: - 1. Mildly reduced LV ejection fraction of 45-50% with very focal area of mid septal akinesis with grade 1 diastolic dysfunction 2. Cardiac valvular Dopplers within normal limits 3. No gross pericardial effusion Findings Procedure Information Contrast agent, definity, is being given per protocol without apparent complications. Left Ventricle Normal left ventricular cavity size. There is normal left ventricular wall thickness. The left ventricular systolic function is mildly decreased. Spectral Doppler is indicative of an impaired relaxation filling pattern. E/E prime ratio is <8, consistent with normal filling pressures. Evidence suggests grade I (mild) diastolic dysfunction. Wall Motion Rest Echo Findings The mid inferoseptal and mid anteroseptal segments are akinetic. All other scored wall segments showed normal motion. Right Ventricle Normal right ventricular cavity size and systolic function. Atria Both atria are normal in size. Interatrial shunt cannot be excluded. Aortic Valve The aortic valve was not well visualized. There is no aortic valve stenosis. There is no aortic valve regurgitation. Mitral Valve Likely normal mitral valve structure and function. There is trace mitral valve regurgitation. There is no mitral valve stenosis. Pulmonic Valve The pulmonic valve is likely normal. Tricuspid Valve Likely normal tricuspid valve structure and function. Tricuspid regurgitation envelope is inadequate for calculation of right ventricular systolic pressure. Normal right atrial pressure. Great Vessels All visible segments of the aorta are normal in size. The pulmonary artery was not well visualized. There is no dilatation of the ascending aorta measuring 3.30 cm. Venous The inferior vena cava is normal in size and collapses greater than 50% with inspiration. Pericardium/Pleural There is no evidence of pericardial effusion. Prior Study Comparison No prior study available for comparison. Recommendations, Care & Conclusions Consider a RAHEL if clinically appropriate. Measurements 2D Linear Measurements IVSd: 0.63 0.6-0.9/0.6-1.0 cm LVIDd: 4.40 3.9-5.3/4.2-5.9 cm LVIDd Index: 2.49 2.4-3.2/2.2-3.1 cm/m2 LVIDs: 3.21 2.0-3.6 cm LVPWd: 0.69 0.7-1.1 cm LA Diam: 2.70 2.7-3.8/3.0-4.0 cm LAIDs Index: 1.53 1.5-2.3 cm/m2 LV Mass: 105.64 67-162/88-224 g LV Mass Index: 59.68 43-95/49-115 g/m2 LVOT Diam: 2.00 3.0+(-)1.3 cm 2D Systolic Function EF 4C: 47.60 >55% EF 2C: 53.90 >55% EF BiP: 49.40 >55% Mitral Valve MV Pk E: 0.50 MV PK A: 0.66 MV Decel Time: 210.00 E/A: 0.80 E'Lateral: 9.32 E'Medial: 5.59 E/E' Med: 9.00 E/E' Lat: 5.40 PHT: 62.00 MVA PHT: 3.55 Decel [place]: 2.38 Aortic Valve AoV Pk Teofilo: 0.99 AoV Mn Teofilo: 0.72 AoV VTI: 0.20 AoV Pk Grad: 4.00 Aov Mn Grad: 2.00 MARINA Cont.VTI: 2.70 LVOT LVOT Pk Teofilo: 0.90 LVOT Mn Teofilo: 0.60 LVOT VTI: 0.17 LVOT Pk Grad: 3.00 LVOT Mn Grad: 2.00 LVOT Diam: 2.00 LVOT Area: 3.14 Diastolic Function MV Pk E: 0.50 MV Pk A: 0.66 E/A: 0.80 E'Medial: 5.59 E/E' Med: 9.00 E' Laterial: 9.32 E/E' Lat: 5.40 Right Ventricle TAPSE (mm): 15.90 TVS' Teofilo: 11.30 Tricuspid Valve RA Press: 3.00 Great Vessels Aorta Sinus of Valsalva: 3.30 2.0-3.5 cm Ao Asc: 3.30 2.1-3.4 cm Pulmonary Veins Pulm Vein S/D 1.70 Pulmonary Valve PV Pk Teofilo: 0.86 Peak PV Grad: 3.00 Updated in Other Vendor System with Status of Final Toni Turner MD electronically signed on 02/10/2025 1:23:57 PM with status of Final
--- NOTE | 2025-02-10 09:33 | PC.NURSE ---
Pt off unit for MRI
[2025-02-10] MEDS: Aspirin Enteric Coated 81 MG TABLET.DR PO (10:37)
[2025-02-10] MEDS: Sacubitril/Valsartan 24/26 1 TAB TABLET PO (11:11)
[2025-02-10 11:13] LABS: Cholesterol 124 mg/dL (<200); HDL Cholesterol 45 mg/dL (>40); Triglycerides 80 mg/dL (<150)
--- NOTE | 2025-02-10 12:15 | PM.NEUROCN ---
History of Present Illness Data of Consult Service Date: 02/10/25 Primary Care Provider: Horacio Ontiveros MD [facility] Reason for consult: Fluctuating blurred vision in the right eye for a couple of weeks This is a 69-year-old male with a past medical history of HTN, HLD, DM, CAD, who presented to the hospital today with a chief complaint of blurry vision. Patient mentioned that he has been having episodes of blurry vision starting with the 1st episode on January 24 that lasted for 3 or 4 hours with blurred vision in the right eye as if there was a Saran wrap in front of his eyes. For the next 10 days he was asymptomatic and then had another episode when he was exposed to bright sun. In the interim he visited [place] for vacation and continued wearing dark glasses which helped him. In the last 2 3 days he has again noticed blurred vision in the right eye. He had an eye exam done and went to see an employment attorney for possible cataract and was told that he had some vascular issues with the right eye and was sent to the emergency room for further evaluation. His symptoms have since cleared.. Episodes have been intermittent. The symptoms when they initially happened lasted for few hours and resolved. Did not have any episode for about a week. Today he had 4 hour episode of blurry vision which resolved by the time he came to the ER and had another 45 minute episode of blurry vision. Currently his vision has improved. Denies any numbness tingling or focal weakness. Denies any headaches. [facility] Past Medical History Medical History (Updated 02/10/25 @ 16:46 by Juan Ross MD) CAD (coronary artery disease) Heart failure with recovered ejection fraction (HFrecEF) Social History Social History Smoked in Last 30 Days: No Advance Directives: No Advance Directives Information Provided: Yes Meds Allergies Allergy/AdvReac Type Severity Reaction Status Date / Time No Known Allergies Allergy Verified 02/09/25 16:23 Active Medications: Current Medications Acetaminophen (Acetaminophen 325 Mg Tablet) 650 mg PO Q6H PRN PRN Reason: Pain, Mild 1-3,fever,headache Aspirin (Aspirin Enteric Coated 81 Mg Tablet.) 81 mg PO DAILY [facility] Last Admin: 02/10/25 10:37 Dose: 81 mg Atorvastatin Calcium (Atorvastatin Calcium 80 Mg Tablet) 80 mg PO DAILY [facility] Last Admin: 02/10/25 10:38 Dose: 80 mg Calcium Carbonate (Calcium Carbonate 750 Mg Tab.Chew) 750 mg PO Q4H PRN PRN Reason: Heartburn Carvedilol (Carvedilol 6.25 Mg Tablet) 6.25 mg PO BID [facility]; Protocol Last Admin: 02/10/25 11:12 Dose: 6.25 mg Clopidogrel Bisulfate (Clopidogrel Bisulfate 75 Mg Tablet) 75 mg PO DAILY [facility] Last Admin: 02/10/25 10:37 Dose: 75 mg Heparin Sodium (Porcine) (Heparin Sodium,Porcine 5,000 Unit/Ml Vial) 5,000 unit SUBCUT Q8H [facility] Last Admin: 02/10/25 06:26 Dose: 5,000 unit Lactated Ringer's (Lr) 1,000 mls @ 100 mls/hr IVCONT .Q10H [facility] Last Infusion: 02/10/25 11:16 Dose: 100 mls/hr Magnesium Hydroxide (Milk Of Magnesia 30 Ml Oral.Susp) 30 ml PO DAILY PRN PRN Reason: Constipation Melatonin (Melatonin 3 Mg Tablet) 6 mg PO BEDTIME PRN PRN Reason: Insomnia Sacubitril/Valsartan (Sacubitril/Valsartan 1 Tab Tablet) 1 tab PO BID [facility]; Protocol Last Admin: 02/10/25 11:11 Dose: 1 tab Sodium Chloride (0.9 % Sodium Chloride Flush 3 Ml Syringe) 3 ml IVFLUSH QSHIFT [facility] Last Admin: 02/10/25 08:10 Dose: Not Given Vitamin D (Cholecalciferol (Vitamin D3) 25 Mcg Tablet) 125 mcg PO DAILY [facility] Last Admin: 02/10/25 10:37 Dose: 125 mcg Home Medications ?Medication ?Instructions ?Recorded ?Confirmed ?Last Taken ?Type ascorbic acid (vitamin C) 500 mg 500 mg PO DAILY 02/09/25 02/09/25 02/09/25 History tablet (Vitamin C) aspirin 81 mg tablet,delayed 81 mg PO DAILY 02/09/25 02/09/25 02/09/25 History release atorvastatin 80 mg tablet 80 mg PO BEDTIME 02/09/25 02/09/25 02/09/25 History carvedilol 6.25 mg tablet 6.25 mg PO BID 02/09/25 02/09/25 02/09/25 History cholecalciferol (vitamin D3) 125 125 mcg PO DAILY 02/09/25 02/09/25 02/09/25 History mcg (5,000 unit) tablet (Vitamin D3) dapagliflozin propanediol 10 mg 10 mg PO DAILY 02/09/25 02/09/25 02/09/25 History tablet (Farxiga) ferrous sulfate 324 mg (65 mg 324 mg PO DAILY 02/09/25 02/09/25 02/09/25 History iron) tablet,delayed release multivitamin 1 tab PO DAILY 02/09/25 02/09/25 02/09/25 History sacubitril 24 mg-valsartan 26 mg 1 tab PO BID 02/09/25 02/09/25 02/09/25 History tablet Physical Exam Vital Signs: Vital Signs: Last Vital Signs Temp 97.4 F 02/10/25 09:44 Pulse 75 02/10/25 11:12 Resp 18 02/10/25 09:44 BP 138/81 02/10/25 11:12 Pulse Ox 98 02/10/25 09:44 O2 Del Method Room Air 02/10/25 09:44 BMI result Body Mass Index 23.1 Neuro: Other: His visual acuity is 2040 bilaterally. Pupils round reactive to light. Nonfocal neurological examination. Results Labs 02/10/25 03:43 02/10/25 03:43 Labs: Short CBC 02/09/25 02/10/25 Range/Units 16:38 03:43 WBC 4.5 L 4.6 L (4.8-10.8) X10*3/uL Hgb 14.4 14.2 (14.0-18.0) g/dl Hct 40.8 L 40.9 L (42.0-52.0) % Plt Count 151 L 119 L (160-400) X10*3/uL BMP 02/09/25 02/10/25 16:38 03:43 Sodium 141 143 Potassium 3.9 3.6 Chloride 107 107 Carbon Dioxide 30 H 25 BUN 13 12 Creatinine 0.88 0.70 Calcium 8.6 8.3 L Liver Function 02/09/25 02/10/25 Range/Units 16:38 03:43 Total Bilirubin 1.5 H 2.0 H (0.0-1.0) mg/dL AST 30 26 (5-37) U/L ALT 27 19 (0-40) U/L Alkaline Phosphatase 51 33 L (39-117) U/L Albumin 4.1 3.7 (3.5-5.0) g/dL Assessment and Plan (1) Transient monocular blindness: Status: Acute Her symptoms are consistent with a right ophthalmic artery ischemia and become more noticeable with bright light suggesting compromised blood flow to the right central retinal artery. I reviewed the MRI which is normal and the CTA. I am aware that on 1 image it was reported that the ophthalmic artery looked stenosed on the right but I am not entirely convinced. The symptoms certainly match that. Would recommend doing a sed rate to make sure that there is no giant cell arteritis accounting for these symptoms. Echocardiogram has been completed and shows some reduced ejection fraction from previous known ID. Patient was already on aspirin 81 mg a day. Would recommend adding Plavix 75 mg a day. Patient may be discharged after checking the sed rate. Procedures Date of Service Date of Service: 02/10/25
--- NOTE | 2025-02-10 13:51 | MHC.SLORD ---
Speech Language Pathology Order Status: ANGLE ROLL OPERATOR to evaluate cognition 02/11.
--- NOTE | 2025-02-10 14:17 | PM.DS ---
DS: Providers Provider Date of Service: 02/10/25 Date of admission: 02/09/25 21:49 Date of discharge: 02/10/25 Primary care physician: Horacio Ontiveros MD Consults: 02/09/25 21:51 Consult to Neurology Routine Consulting Provider: Malcolm Carreon Reason for consultation: blurry vision DS: Diagnosis Discharge Diagnosis (1) Branch retinal artery occlusion: Status: Acute DS: Summary Hospital Course Hospital Course: from initial hpi: 69-year-old male with a past medical history of HTN, HLD, CAD, hfref presented to the hospital today with a chief complaint of blurry vision. Patient mentioned that he has been having episodes of blurry visions since January 24. Episodes have been intermittent. The symptoms when they initially happened lasted for few hours and resolved. Did not have any episode for about a week. Follow up he followed up with his primary international sales representative who initially planned for evaluation for cataract but later told him that it is concerning for retinal artery stenosis and asked him to go to the ER to rule out stroke. Today he had 4 hour episode of blurry vision which resolved by the time he came to the ER and had another 45 minute episode of blurry vision. Currently his vision is improved. Denies any numbness tingling or focal weakness. Denies any headaches. Denies any fever chills cough or sputum production. Denies any GI symptoms. Review of all other systems is negative except mentioned above ER course: Per ER team, patient initially had blurry vision in his right eye which currently resolved. The his vision was 20/50 in the right eye and 20/40 in the left eye. CT head showed no acute intracranial process. CT angio showed diminished symmetric flow of the right ophthalmic artery. ER physician discussed with Dr. Agudelo-international sales representative who suggested echocardiogram, aspirin Plavix. Did not suggest heparin drip. hospital course: Patient was admitted for right retinal artery occlusion. MRI was unremarkable. Echo showed mildly reduced EF consistent with previous history of ischemic cardiomyopathy, was seen by Neurology who recommended continuing aspirin statin adding Plavix. For chronic systolic CHF was continued on carvedilol, Entresto he should follow up with Cardiology as outpatient. Patient is still with some right-sided vision loss but improving. No other neuro deficits. For coronary artery disease continued on aspirin and statin and Plavix mentioned as above. Time Attestation Discharge Coordination Time (in mins): 34 Quality: Safe Use of Opioids Does Pt have an Active Cancer Diagnosis on the Problem List?: No Quality: Stroke Does the patient have a stroke diagnosis?: Yes Reason for No Anti-thrombotic at DC: N/A - Med Ordered Reason for No Anticoagulant at DC: Drug treatment not indicated Reason Not Initiating IV-Tpa: Drug treatment not indicated Reason for No Anti-thrombotic by Day Two: N/A - Med Ordered Reason for No Statin at DC: N/A - Med Ordered Physical Exam Exam: Exam: General: AO X 3, no acute distress Resp: CTA bilateral, no accessory muscles used CVS: S1,S2,RRR GI: soft, non tender, non distended Neuro: motor grossly intact, alert Psych: appropriate affect, appropriate insight right eye vision loss Vital Signs: Vital Signs: Last Vital Signs Temp 97.4 F 02/10/25 09:44 Pulse 75 02/10/25 11:12 Resp 18 02/10/25 09:44 BP 138/81 02/10/25 11:12 Pulse Ox 98 02/10/25 09:44 O2 Del Method Room Air 02/10/25 09:44 BMI result Body Mass Index 23.1 DS: Data Data Completed and Pending Labs on day of discharge: Laboratory Results - last 24 hr 02/09/25 02/10/25 02/10/25 16:38 03:43 10:54 WBC 4.5 L 4.6 L RBC 4.38 L 4.38 L Hgb 14.4 14.2 Hct 40.8 L 40.9 L MCV 93.2 93.4 MCH 32.9 32.4 MCHC 35.3 34.7 RDW 12.2 12.4 Plt Count 151 L 119 L MPV 8.1 L 8.6 L Immature Gran % (Auto) 0.2 0.2 Neut % (Auto) 54.0 44.6 L Lymph % (Auto) 31.0 39.7 [place] % (Auto) 12.6 H 12.6 H Eos % (Auto) 1.5 2.2 Baso % (Auto) 0.7 0.7 Lymph # (Auto) 1.4 1.8 [place] # (Auto) 0.6 0.6 Eos # (Auto) 0.1 0.1 Baso # (Auto) 0.0 0.0 Abs Immat Gran (auto) 0.01 0.01 Absolute Neuts (auto) 2.4 2.1 Absolute Nucleated RBC 0.000 0.000 Nucleated RBC % (auto) 0.0 0.0 Sodium 141 143 Potassium 3.9 3.6 Chloride 107 107 Carbon Dioxide 30 H 25 Anion Gap 8 L 15 BUN 13 12 Creatinine 0.88 0.70 Estim Creat Clear Calc 76.1 95.7 Estimated GFR > 60 > 60 Random Glucose 102 87 Calcium 8.6 8.3 L Total Bilirubin 1.5 H 2.0 H AST 30 26 ALT 27 19 Alkaline Phosphatase 51 33 L Total Protein 6.5 5.9 L Albumin 4.1 3.7 Triglycerides 69 80 Cholesterol 115 124 LDL Cholesterol, Calc 59 63 HDL Cholesterol 43 45 TSH 3.74 Discharge Plan Discharge Anticipated Discharge Date/Time: 02/10/25 14:12 Patient Disposition: Home, Self-Care Discharge Diagnosis: retinal artery occlusion Referrals: Horacio Ontiveros MD [Primary Care Provider, Internal Medicine] - 1 Week Discharge Medications: New clopidogrel 75 mg Tablet 75 mg PO DAILY 90 Days Qty: 90 0RF Continued multivitamin Tablet 1 tab PO DAILY atorvastatin 80 mg tablet 80 mg PO BEDTIME carvedilol 6.25 mg tablet 6.25 mg PO BID aspirin 81 mg tablet,delayed release (DR/EC) 81 mg PO DAILY ascorbic acid (vitamin C) [Vitamin C] 500 mg Tablet 500 mg PO DAILY ferrous sulfate 324 mg (65 mg iron) Tablet,Delayed Release (Dr/Ec) 324 mg PO DAILY cholecalciferol (vitamin D3) [Vitamin D3] 125 mcg (5,000 unit) Tablet 125 mcg PO DAILY dapagliflozin propanediol [Farxiga] 10 mg tablet 10 mg PO DAILY sacubitril-valsartan 24-26 mg tablet 1 tab PO BID Discharge Orders: Discharge Order (Routine); Ordered 02/10/25 Ordered By: Nura Garcia Diet: Advance to usual diet Activity on Discharge: As tolerated Stand Alone Forms: Patient Portal Discharge page Print Language: Georgian Care Plan Goals: recovery Health Concerns: retinal artery occlusion Plan of Treatment: continue asa and statin adding plavix Assessment: see above
--- NOTE | 2025-02-10 16:27 | MHC.STROKE ---
Met with patient and brother. Pt awake, alert and oriented x 4. Pt is pleasant and engaged in conversation. No focal deficits noted. Pt reports that the reason he was sent to the ED was due to vision changes. Pt found to have retinal artery occlusion No speech difficulties. Stroke education provided to patient. Pamphlet given/reviewed. Pt specific Medical history discussed including medications, diet, activity, and social history. We spent a lot of time discussing DAPT Plan is for discharge home. Pt agreeable to plan. All questions answered.
== END 2025-02-10 17:00 | disposition home or self-care (01) | DRG 125 ==
LOC: HO.ED 21:42 → HO.EDOVER 21:55 → HO.IMC 02-10 14:09 → HO.EDOVER 02-10 14:39
PROVIDERS: Physician Assistant; Admitting Provider Hospitalist; Emergency Provider Emergency Medicine; PCP Family Medicine; Visit Provider Internal Medicine
DX: H34.231 Retinal artery branch occlusion, right eye (principal); I50.22 Chronic systolic (congestive) heart failure; I25.10 Atherosclerotic heart disease of native coronary artery without angina pectoris; I25.5 Ischemic cardiomyopathy; I11.0 Hypertensive heart disease with heart failure; Z79.02 Long term (current) use of antithrombotics/antiplatelets; Z79.82 Long term (current) use of aspirin; Z79.899 Other long term (current) drug therapy
CPT/HCPCS: 36415; 70496; 70498; 70551; 80053; 80061; 84443; 85025; 85652; 93005; 93306; 97162; 97165; 99285; J1644; J7120; Q9957

== ENCOUNTER → 2025-02-09 18:45 | Outpatient (BNV) | payer MEDICARE, OTHER, SELFPAY | PROVIDERS: Emergency Provider Emergency Medicine; PCP Family Medicine; Visit Provider Student in an Organized Health Care Education/Training Program | DX: H34.231 Retinal artery branch occlusion, right eye (principal); H54.51 Low vision, right eye, normal vision left eye | CPT/HCPCS: 70496; 70498 ==

== ENCOUNTER → 2025-02-09 21:14 | Outpatient (BNV) | payer MEDICARE, OTHER, SELFPAY | PROVIDERS: Admitting Provider Hospitalist; Emergency Provider Emergency Medicine; PCP Family Medicine; Visit Provider Internal Medicine Cardiovascular Disease | DX: I49.3 Ventricular premature depolarization (principal) | CPT/HCPCS: 93010 ==

== ENCOUNTER 2025-02-09 21:49 | Outpatient (BNV) | payer MEDICARE, OTHER, SELFPAY | END 2025-02-10 09:41 | PROVIDERS: Admitting Provider Hospitalist; Emergency Provider Emergency Medicine; PCP Family Medicine; Visit Provider Radiology Diagnostic Radiology | DX: H34.231 Retinal artery branch occlusion, right eye (principal) | CPT/HCPCS: 70551 ==

== ENCOUNTER 2025-02-09 21:49 | Outpatient (BNV) | payer MEDICARE, OTHER, SELFPAY | END 2025-02-10 07:00 | PROVIDERS: Admitting Provider Hospitalist; Emergency Provider Emergency Medicine; PCP Family Medicine; Visit Provider Internal Medicine Cardiovascular Disease | DX: I51.89 Other ill-defined heart diseases (principal) | CPT/HCPCS: 93306 ==

== ENCOUNTER → 2025-02-09 21:49 | Outpatient (BNV) | payer MEDICARE, OTHER, SELFPAY | PROVIDERS: Admitting Provider Hospitalist; Emergency Provider Emergency Medicine; PCP Family Medicine; Visit Provider Psychiatry & Neurology Neurology | DX: H53.129 Transient visual loss, unspecified eye (principal) | CPT/HCPCS: 99223 ==

== ENCOUNTER → 2025-02-09 21:49 | Outpatient (BNV) | payer MEDICARE, OTHER, SELFPAY | PROVIDERS: Admitting Provider Hospitalist; Emergency Provider Emergency Medicine; PCP Family Medicine; Visit Provider Internal Medicine | DX: H34.231 Retinal artery branch occlusion, right eye (principal) | CPT/HCPCS: 99222; 99239 ==